=== PATIENT | male | born 1975 | race Two or more races ===

== ENCOUNTER 2023-02-20 08:26 | Outpatient (OUT) | payer OTHER, SELFPAY ==
--- NOTE | 2023-02-20 | VEIN_ITS ---
Patient: JASSON ORTIZ Exam Date: 02/20/2023 : 1975 Gender:M Ordering : DR JEREMY GONZALEZ M.D. Admission #: [id number] Family : Order #: [id number] CLICK HERE TO VIEW EXAM RADIOLOGY REPORT PROCEDURE: [facility] EST COMPREHENSIVE VEIN C[facility] - OFFICE VISIT INITIAL COMPARISON: None. PROGRESS NOTES: [age] year old male who presents with a 12 year history of dilated discolored veins which have progressed over the past 2 years to include pain, itching, stinging of lower legs bilaterally. The patient's left leg symptoms are worse than the right. There has been a progression of symptoms over the past 2 years. This increases with prolonged leg dependency. The patient describes an improvement with rest, elevation, exercise. The patient denies any signs and symptoms to suggest arterial ischemia. The patient describes a family history of varicose veins on maternal side. The patient has drinking and smoking history of : Occasional alcohol consumption; no tobacco use.. Patient has a past medical history significant for : None. The patient denies a history of deep venous thrombus or pulmonary embolus. See separate history and physical for medication list. No prior treatment for varicose or spider veins. Past treatment has included use of compression stockings. After review of nurse notes, history and physical exam I discussed at length the pathophysiology of venous hypertension and possible treatments, therapies and strategies available. We discussed at length the importance of elevating the lower extremities above the level of the heart, increased physical activity and compression stocking use. Ultrasound venous reflux study performed today was discussed at length with the patient. The report demonstrates abnormally dilated proximal left great saphenous vein with marked reflux throughout the thigh segment. Several incompetent branch saphenous varicosities arising from the left great saphenous vein. Incompetent segment within right great saphenous vein, but not abnormally dilated.. PHYSICAL EXAM: The right leg demonstrates multiple varicosities, numerous prominent reticular and spider veins, no ulceration, no edema, no skin discoloration. The left leg demonstrates multiple varicosities, numerous prominent reticular and spider veins, no ulceration, no edema, no skin discoloration. Both thighs, legs and feet were symmetrically warm to the touch. Good posterior tibial and dorsalis pedis pulses were present bilaterally. VEIN/[facility] Facility EST Comprehensive IMPRESSION: 1. Bilateral lower extremity venous insufficiency 2. Bilateral lower extremity varicose veins 3. No significant lower extremity subcutaneous edema 4. No flow significant arterial disease 5. CEAP: C2, EC, , [place] PLAN: 1. Continued use of compression stockings 2. Elevated legs and increased physical activity symptomatic relief 3. Endovenous laser ablation of left great saphenous vein. 4. Patient needs microfoam chemical ablation and sclerotherapy for treatment of numerous prominent reticular and spider veins bilaterally, but this will not be approved by current insurance plan. Nurse notes, history and physical were reviewed and confirmed, see attached forms. The nurse was present throughout the physical exam and consultation Dictated by: Thony Mayes M.D. on 02/20/2023 at 10:53 Approved by: Thony Mayes M.D. on 02/20/2023 at 11:00
--- NOTE | 2023-02-20 | VEIN_ITS ---
Patient: JASSON ORTIZ Exam Date: 02/20/2023 : 1975 Gender:M Ordering : DR JEREMY GONZALEZ M.D. Admission #: [id number] Family : Order #: [id number] CLICK HERE TO VIEW EXAM RADIOLOGY REPORT PROCEDURE: VC EXT VENOUS REFLUX ALEXA LMTD COMPARISON: None. INDICATIONS: Pain due to varicose veins of bilateral legs I83.813 TECHNIQUE: Duplex imaging of the lower extremity to assess the deep and superficial venous system for the presence of deep or superficial venous incompetence and to document the location and severity of disease. The study includes evaluation of the great saphenous vein (GSV), anterior accessory saphenous vein (AASV) and small saphenous vein (SSV). Patient scanned in reverse Trendelenburg and standing. FINDINGS: RIGHT LOWER EXTREMITY: Saphenofemoral Junction Reflux: Yes 7.7mm 0.5 sec GSV: Diam (mm) Reflux/ Time (sec) Proximal Thigh 2.8 No Mid Thigh 4.1 Yes 1.0 Distal Thigh 2.7 No Prox Calf 1.6 No Mid Calf 2.5 No Saphenopopliteal Junction Reflux: 3.9mm Yes 0.4 SSV: Proximal Calf 2.3 No Mid Calf 2.8 No AASV: Not present Proximal Thigh Mid Thigh Distal Thigh Thrombi: No acute or chronic thrombus visualized Compressibility: Normal Flow: Normal Preforator: Dist/med calf 1.9mm with 0s reflux. Tech Note: Incompetent SFJ. Patent varicose vein prox/med calf 2.2mm with 0s reflux. Patent varicose vein mid/med calf 3.4mm with 1.4s reflux. 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 Patent varicose vein prox/med calf 4.0mm with 1.4s reflux. Patent varicose vein dist/med thigh 3.9mm with 1.5s reflux. Patent varicose vein mid/med thigh 2.2mm with 1.3s reflux. CONCLUSION: 1. Dilated, incompetent left great saphenous vein with associated incompetent branch saphenous varicosities. Dictated by: Thony Mayes M.D. on 02/20/2023 at 09:50 Approved by: Thony Mayes M.D. on 02/20/2023 at 10:22
== END 2023-02-20 08:27 | disposition home or self-care (01) ==
LOC: VC 08:27
PROVIDERS: PCP Radiology Diagnostic Radiology; Visit Provider Radiology Diagnostic Radiology
DX: I83.813 Varicose veins of bilateral lower extremities with pain (principal)
CPT/HCPCS: 93970; G0463

== ENCOUNTER 2023-04-15 10:54 | Outpatient (OUT) | payer OTHER, SELFPAY ==
--- NOTE | 2023-04-15 10:55 | VEIN_ITS ---
The [address] [address] Patient Name: JASSON ORTIZ MRN: [id number] date: 1975 Sex: M Assigned Patient Location: Current Patient Location: Accession/Order Number: [id number] Exam Date: 04/15/2023 11:30 Report Date: 04/15/2023 13:14 At the request of: JEREMY GONZALEZ Procedure: VC Endovenous Ablation 1VeinLT EXAMINATION: VC Endovenous Ablation 1VeinLT HISTORY: I83.813 Painful varicose veins of bilat lower extremities The risks and benefits of the procedure had been previously discussed, and were rediscussed at length. Informed written consent was obtained. Miranda Alexander RN and Martha Coker RDMS, RVT assisted. Time out procedure was performed. The left lower extremity was prepared and draped in the usual sterile fashion to allow knee flexion in the sterile field. Duplex ultrasound probe was draped in a sterile cover, sterile transmission gel was used. Venous mapping was performed with the areas of dilation and large tributaries marked. The total length was 47 cm from the entry mid calf to 3 cm below the Saphenofemoral junction. The diameter of the left great saphenous vein ranged from 8.1 mm. A 30 gauge needle and 1% buffered lidocaine was used to anesthetize the entry site. A 4 mm incision was made with a scalpel and the saphenous vein was entered percutaneously under direct ultrasound guidance with a micropuncture set, a single stick was successful in gaining access. A micro-guide wire was inserted and the needle removed. A micro-set including a dilator was inserted over the microwire and the needle and dilator were removed. A guide wire was inserted through the micro-set and guided through the saphenous vein to the saphenofemoral junction. The dilator was removed and an introducer sheath was inserted over the wire until the end of the sheath entered the saphenofemoral junction. The dilator and wire were removed and the 600 micron fiber was introduced and placed and positioned so that it extended beyond the sheath and was 3 cm distal to the saphenofemoral or saphenopopliteal junction. Final position of the fiber was determined by ultrasound guidance and duplex imaging. Tumescent anesthetic was delivered by ultrasound guidance. 250 cc of fluid was delivered along the entire course of the saphenous vein. The solution consisted of 1000 cc of normal saline with 40 mL of 1% lidocaine and 20 mL of sodium bicarbonate. A final positioning check was made. The energy source was turned on by means of the foot pedal and the fiber and sheath were withdrawn. The total number of Joules delivered was 2272. The laser was active for 284 seconds under continuous pulse, average laser use of 8 J. Laser start time 11:47 AM, 04/15/2023. Laser stop time 11:52 AM, 04/15/2023. A duplex ultrasound revealed compressibility and flow at the saphenofemoral junction immediately after the procedure. Hemostasis at the access site was achieved. The skin incision of the saphenous vein was closed with a 4 x 4. A compression stocking was applied. Postop instructions were given. A follow up appointment was recommended and scheduled. The patient tolerated the procedure well. Electronically authenticated by: LISA VILLELA Date: 04/15/2023 13:14
[2023-04-15] MEDS: LIDOCAINE HCL 1% 100 MG/10 ML MDV INJ (11:35)
[2023-04-15] MEDS: 0.9 % SODIUM CHLORIDE 500 ML, LIDOCAINE HCL 20 ML, SODIUM BICARBONATE 10 MEQ INJ (11:36)
== END 2023-04-15 10:55 | disposition home or self-care (01) ==
LOC: VC 10:54
PROVIDERS: PCP Radiology Diagnostic Radiology; Visit Provider Radiology Diagnostic Radiology
DX: I83.813 Varicose veins of bilateral lower extremities with pain (principal)
CPT/HCPCS: 36478

== ENCOUNTER 2023-04-22 09:30 | Outpatient (OUT) | payer OTHER, SELFPAY ==
--- NOTE | 2023-04-22 09:31 | VEIN_ITS ---
Patient: JASSON ORTIZ Exam Date: 04/22/2023 : 1975 Gender:M Ordering : DR SALAS GONZALEZ M.D. Admission #: [id number] Family : Order #: [id number] CLICK HERE TO VIEW EXAM RADIOLOGY REPORT PROCEDURE: VC EXT VENOUS LT LIMITED COMPARISON: None. INDICATIONS: I80.02 Phlebitis of superficial veins of lt lower extremity TECHNIQUE: Lower extremity holly scale and Duplex Doppler evaluation of the deep venous system from the inguinal ligament through the calf veins. FINDINGS: REGION: Left lower extremity. THROMBI: Negative for DVT. Heat induced thrombus visualized 2.3cm from the SFJ. The heat induced thrombus extends from groin to distal calf. COMPRESSIBILITY: Non-compressible segments corresponding to thrombus. FLOW: Areas of absent flow corresponding to thrombus. CONCLUSION: Post ablation occlusion of the left great saphenous vein with heat induced thrombus 2.3 cm from the saphenofemoral junction Dictated by: Salas Gonzalez MD on 04/22/2023 at 10:10 Approved by: Salas Gonzalez MD on 04/22/2023 at 10:11
--- NOTE | 2023-04-22 09:31 | VEIN_ITS ---
Patient: JASSON ORTIZ Exam Date: 04/22/2023 : 1975 Gender:M Ordering : DR SALAS GONZALEZ M.D. Admission #: [id number] Family : Order #: [id number] CLICK HERE TO VIEW EXAM RADIOLOGY REPORT PROCEDURE: FACILITY EST LMTD VEIN CENTER - OFFICE VISIT FOLLOW UP COMPARISON: None. PROGRESS NOTES: The patient reports no significant problems following intravenous laser ablation the left great saphenous vein. Patient did not require oral analgesics. The patient has worn his compression stockings. The patient has followed our recommendations to walk 20-30 minutes once or twice per day since the procedure. Physical exam demonstrates no significant bruising. The incision is closed. Thrombosed left great saphenous vein can be partially palpated. No areas of erythema or warmth to suggest cellulitis or thrombophlebitis. No active ulceration. Bilateral reticular and spider veins are noted most significant along the medial right knee and lower leg, the patient did have concern over these. Review of the ultrasound performed the same day demonstrates occlusive thrombus extending throughout the treated left great saphenous vein with heat induced thrombus 2.3 cm from the saphenofemoral junction. The patient expressed a desire to proceed with treatment of bilateral reticular and spider veins with self a sclerotherapy and said he would schedule when convenient for him. Natural progression of his vein disease was discussed at length with the importance of exercise and compression stocking use explained. The patient is in need of micro foam chemical ablation of incompetent varicose veins, denied by his insurance company. The patient was given a cell pay option. VEIN/ Facility EST LMTD IMPRESSION: 1. Successful ablation of the left great saphenous vein. 2. Persistent bilateral incompetent varicose veins, bilateral reticular and spider veins. PLAN: Self pay injection sclerotherapy Nurse notes, history and physical were reviewed and confirmed, see attached forms. The nurse was present throughout the physical exam and consultation Dictated by: Salas Gonzalez MD on 04/22/2023 at 10:41 Approved by: Salas Gonzalez MD on 04/22/2023 at 10:44
== END 2023-04-22 09:31 | disposition home or self-care (01) ==
LOC: VC 09:30
PROVIDERS: PCP Radiology Diagnostic Radiology; Visit Provider Radiology Diagnostic Radiology
DX: I80.02 Phlebitis and thrombophlebitis of superficial vessels of left lower extremity (principal); I83.93 Asymptomatic varicose veins of bilateral lower extremities
CPT/HCPCS: 93971; G0463